=== PATIENT | female | born 1985 | race Caucasian/White ===

== ENCOUNTER 2018-05-29 15:55 | Emergency (ER) | payer MEDICAID ==
[~2018-05-29] VITALS: Ht 157.5 cm; Wt 81.7 kg
[~2018-05-29 15:55] MED LIST: ALBU90OI INH; AMOX500 PO; AZIT250 PO; Augmentin 875-1 EACH PO; BENZ100A PO; CEPH500 PO; CIPR500 PO; CODACE30 PO; ESCITALOPRAM OX10 MG PO; HYDACE5 PO; HYDGUAL120 PO; HYDHCL10 PO; IBUP800 PO; Lexapro5 MG PO; MEDR150I; NAPR500 PO; PERM5TC TOP; PREN-16 PO; PRENZ PO; Percocet 5-3251 EACH PO; Prednisone20 MG PO; RXTRAM50 PO; SPACE CHAMBER1 EACH MC; SULTRIDS PO; TRAM50 PO; Veetids 500500 MG PO; [UNRECOGNIZED DRUG - REMARK]
== END 2018-05-29 17:06 | disposition left against medical advice (07) ==
LOC: ER 15:55
DX: S70.362A Insect bite (nonvenomous), left thigh, initial encounter (principal); W57.XXXA Bitten or stung by nonvenomous insect and other nonvenomous arthropods, initial encounter; Z53.20 Procedure and treatment not carried out because of patient's decision for unspecified reasons
CPT/HCPCS: 99282

== ENCOUNTER 2018-12-18 00:53 | Emergency (ER) | payer MEDICAID ==
[~2018-12-18] VITALS: Ht 157.5 cm; Wt 98.0 kg
== END 2018-12-18 03:07 | disposition home or self-care (01) ==
LOC: ER 00:53
DX: S93.401A Sprain of unspecified ligament of right ankle, initial encounter (principal); F17.200 Nicotine dependence, unspecified, uncomplicated; X50.1XXA Overexertion from prolonged static or awkward postures, initial encounter
CPT/HCPCS: 99283

== ENCOUNTER 2021-05-29 01:25 | Emergency (ER) | payer SELFPAY ==
[~2021-05-29] VITALS: Ht 157.5 cm; Wt 99.8 kg
== END 2021-05-29 03:58 | disposition home or self-care (01) ==
LOC: ER 01:25
DX: S46.911A Strain of unspecified muscle, fascia and tendon at shoulder and upper arm level, right arm, initial encounter (principal); S20.211A Contusion of right front wall of thorax, initial encounter; V00.131A Fall from skateboard, initial encounter; F17.200 Nicotine dependence, unspecified, uncomplicated
CPT/HCPCS: 71045; 73000; 93005; 93010; 96374; 99284-25; J1885

== ENCOUNTER 2021-06-03 22:47 | Inpatient (IN) | payer OTHER ==
[~2021-06-03] VITALS: Ht 157.5 cm; Wt 100.7 kg
[2021-06-03 23:09] LABS: Hematocrit 35.6 % (33.0-51.0); Hemoglobin 12.3 g/dL (11.5-16.0); Mean Corpuscular HGB Conc 34.6 g/dL (31.5-36.5); Mean Corpuscular Volume 81 fL (80-100); Mean Platelet Volume 10.8 fL (9.1-12.4); Platelet Count 253 K/mm3 (150-400); RDW Coefficient Variation 13.3 % (11.7-14.2); RDW Standard Deviation 39.3 fL (35.1-46.3); White Blood Cell Count 26.41 K/mm3 (4.00-11.30)
[2021-06-03 23:28] LABS: BAND PERCENT MAN 20 % (0-8); BASOPHILS PERCENT MAN 0 % (0-2); EOSINOPHILS PERCENT MAN 0 % (0-6); LYMPHOCYTES ABSOLUTE MAN 1.84 K/mm3 (0.84-5.20); LYMPHOCYTES PERCENT MAN 7 % (21-46); MONOCYTES ABSOLUTE MAN 0.52 K/mm3 (0.16-1.47); MONOCYTES PERCENT MAN 2 % (4-13); NEUTROPHILS ABSOLUTE MAN 24.03 K/mm3 (1.96-9.15); SEG NEUTROPHILS PERCENT MAN 71 % (41-73); TOTAL CELLS COUNTED 100
[2021-06-03 23:34] LABS: Alanine Aminotransfer (ALT/SGP 64 U/L (12-78); Albumin, Blood 1.7 g/dL (3.4-5.0); Albumin/Globulin Ratio 0.3 (0.8-1.8); Alk Phos 83 U/L (50-136); Anion Gap 11 mmol/L (6-16); Aspartate Aminotrans (AST/SGOT 173 U/L (12-37); Bilirubin, Total 0.8 mg/dL (0.1-1.0); Blood Urea Nitrogen 24 mg/dL (8-24); CO2, Blood 23 mmol/L (21-32); Calcium, Blood 7.4 mg/dL (8.5-10.1); Chloride, Blood 94 mmol/L (98-108); Globulin, Blood 4.9 g/dL (2.2-4.0); Glomerular Filtration Rate >60 (60-); Glucose, Blood 130 mg/dL (70-99); Potassium, Blood 3.3 mmol/L (3.5-5.5); Sodium, Blood 128 mmol/L (136-145); Total Protein, Blood 6.6 g/dL (6.4-8.2)
[2021-06-04 00:47] LABS: Influenza A, PCR NEGATIVE (NEGATIVE); Influenza B, PCR NEGATIVE (NEGATIVE); Resp Syncytial Virus, PCR NEGATIVE (NEGATIVE); SARS-Cov-2 (COVID-19) PCR, MMC NEGATIVE (NEGATIVE)
[2021-06-04 03:48] LABS: Source, Urine Clean Catch
[2021-06-04 03:49] LABS: Bilirubin, Urine Neg (Neg); Blood, Urine 3+ (Neg); Glucose Qualitative, Urine Neg (Neg); Ketones, Urine Neg (Neg); Leukocyte Esterase, Urine Neg (Neg); Nitrite, Urine Neg (Neg); Protein, Urine 2+ (Neg); Urobilinogen, Urine 1+ (Normal)
[2021-06-04 04:06] LABS: Appearance, Urine Clear (Clear); Color, Urine Yellow (P-Yellow)
[2021-06-04 04:07] LABS: Bacteria Few /hpf; Red Blood Cells, Urine 0-2 /hpf (0-2); Squamous Epithelial Cells Few /hpf (Few); White Blood Cells, Urine Rare /hpf (0-5)
[2021-06-04 04:08] LABS: Trichomonas Few /hpf
[2021-06-04 05:19] LABS: U Amphetamine Screen DETECTED; U Barbituate Screen Not Detected; U Benzodiazapine Screen Not Detected; U Buprenorphine Screen Not Detected; U Cannabinoids Screen Not Detected; U Cocaine Screen Not Detected; U Methadone Screen Not Detected; U Methamphetamine Screen DETECTED; U Opiates Screen Not Detected; U Oxycodone Screen Not Detected; U Phencyclidine Screen Not Detected; U Propoxyphene Screen Not Detected
[2021-06-04 06:21] LABS: Mean Corpuscular HGB 27.9 pg (26.0-34.0); Mean Corpuscular HGB Conc 34.4 g/dL (31.5-36.5); Mean Corpuscular Volume 81 fL (80-100); Mean Platelet Volume 11.5 fL (9.1-12.4); Platelet Count 227 K/mm3 (150-400); RDW Coefficient Variation 13.5 % (11.7-14.2); RDW Standard Deviation 39.9 fL (35.1-46.3); Red Blood Cell Count 3.94 M/mm3 (3.80-5.20); White Blood Cell Count 26.86 K/mm3 (4.00-11.30)
--- NOTE | 2021-06-04 06:48 | NUR ---
Arrived to unit from ER. Unable to complete admission records due to will not answer questions. Very tearful at times. Central line placed by Dr German and confirmed by radiology. levo continues to infuse at 6mcg.
[2021-06-04 06:51] LABS: Anion Gap 9 mmol/L (6-16); Blood Urea Nitrogen 25 mg/dL (8-24); CO2, Blood 25 mmol/L (21-32); Calcium, Blood 7.2 mg/dL (8.5-10.1); Chloride, Blood 100 mmol/L (98-108); Creatinine, Blood 0.83 mg/dL (0.40-1.00); Glomerular Filtration Rate >60 (60-); Glucose, Blood 128 mg/dL (70-99); Potassium, Blood 3.3 mmol/L (3.5-5.5); Sodium, Blood 134 mmol/L (136-145)
--- NOTE | 2021-06-04 07:15 | NUR ---
Assumed care of pt at 0700. Report received from Caroline TORRES. Pt lethargic, but A&O x 4. Levophed at 6 mcg/min. Pt receiving 5 LPM NC to maintain SpO2 90% or greater.
[2021-06-04 07:24] LABS: BAND PERCENT MAN 28 % (0-8); BASOPHILS PERCENT MAN 0 % (0-2); EOSINOPHILS PERCENT MAN 0 % (0-6); LYMPHOCYTES PERCENT MAN 3 % (21-46); MONOCYTES ABSOLUTE MAN 0.26 K/mm3 (0.16-1.47); MONOCYTES PERCENT MAN 1 % (4-13); NEUTROPHILS ABSOLUTE MAN 25.78 K/mm3 (1.96-9.15); SEG NEUTROPHILS PERCENT MAN 68 % (41-73); TOTAL CELLS COUNTED 100
--- NOTE | 2021-06-04 09:00 | NUR ---
Levophed down to 4mcg/min. NC down to 3 LPM. Will continue to closely reassess.
--- NOTE | 2021-06-04 11:03 | NUR ---
Dr Esparza in to see pt. Discussed plan of care. Provider states patient may eat.
--- NOTE | 2021-06-04 16:35 | NUR ---
Discussed positive blood cultures with Dr Esparza. No new orders. Discussed that pt is on room air and levophed is off. Provider states pt may be medical floor status with telemetry.
--- NOTE | 2021-06-04 17:17 | NUR ---
SUMMARY Pt is medical floor status. Neuro: A&O x 4. Answers questions, follows commands, verbalizes needs. Pleasant and cooperative with care. Musculoskeletal: OOB once to use commode. Weak, but able to safely mobilize from bed to chair with staff assist. Moves all extremities with equal strength and range. Respiratory: Lungs clear t/o. Titrated from 5 LPM NC to room air. Pt's cough has become less frequent and less productive. SpO2 90% or greater. Cardiac: SR per monitor. Levophed titrated from 6 mcg/min to off today. Central line remains in place. Capillary refill less than 3 seconds BUE and BLE. No edema. GI: One incontinent bowel movement, liquid with pellets. 2 G low Na+ diet, pt tolerating well. : Tanner catheter patent and draining yellow urine. Skin: Unremarkable Psychosocial: Pleasant and cooperative with care. No visitors. Pt unable to contact family because she does not have personal phone and does not have phone numbers commited to memory.
--- NOTE | 2021-06-04 18:28 | NUR ---
Pt. is awake and sitting up in bed. Pt. welcomes my visit. Pt. is unsettled because she cannot contact her father. Pt. verbalizes her fear about being in ICU. Listen empathetically and give encouragement that this is the very best place for her to be. Pt. becomes carthatic. [place] with Pt. and offer to see if I can find her fathers phone number. He is not listen as a contact on her chart.
[2021-06-05 04:32] LABS: Hematocrit 30.8 % (33.0-51.0); Hemoglobin 10.6 g/dL (11.5-16.0); Mean Corpuscular HGB 27.9 pg (26.0-34.0); Mean Corpuscular HGB Conc 34.4 g/dL (31.5-36.5); Mean Corpuscular Volume 81 fL (80-100); Mean Platelet Volume 11.4 fL (9.1-12.4); Platelet Count 253 K/mm3 (150-400); RDW Coefficient Variation 13.4 % (11.7-14.2); RDW Standard Deviation 39.6 fL (35.1-46.3)
[2021-06-05 04:56] LABS: Alanine Aminotransfer (ALT/SGP 64 U/L (12-78); Albumin, Blood 1.3 g/dL (3.4-5.0); Albumin/Globulin Ratio 0.3 (0.8-1.8); Alk Phos 103 U/L (50-136); Anion Gap 9 mmol/L (6-16); Aspartate Aminotrans (AST/SGOT 161 U/L (12-37); Bilirubin, Total 0.4 mg/dL (0.1-1.0); Blood Urea Nitrogen 46 mg/dL (8-24); Bun/Creatinine Ratio 60.1 (12.0-20.0); CO2, Blood 25 mmol/L (21-32); Calcium, Blood 7.6 mg/dL (8.5-10.1); Chloride, Blood 102 mmol/L (98-108); Creatinine, Blood 0.77 mg/dL (0.40-1.00); Globulin, Blood 4.1 g/dL (2.2-4.0); Glomerular Filtration Rate >60 (60-); Glucose, Blood 153 mg/dL (70-99); Magnesium, Blood 2.9 mg/dL (1.6-2.4); Potassium, Blood 3.9 mmol/L (3.5-5.5); Sodium, Blood 136 mmol/L (136-145); Total Protein, Blood 5.4 g/dL (6.4-8.2); Vancomycin, Trough 14.2 ug/mL (5.0-10.0)
--- NOTE | 2021-06-05 05:54 | NUR ---
Remained on room air through night, sats remain stable in mid to high 90's. No elevated temps through night. Ciro eden dc'jareth per nursing protocol. Advised to call nurse for assist to get up to use toilet for safety until strength is recovered.
--- NOTE | 2021-06-05 08:25 | NUR ---
BEGINNING OF SHIFT Assumed care of pt from Caroline TORRES. Pt A&O x 4. Answers questions. Follows commands. Verbalizes needs. Pleasant and coooperative with care. Tanner removed during previous shift. Pt up to BSC to void urine- pt successfully able to void. Pt on room air. Central line removed, pt tolerated well. Site dressed with petroleum gauze, gauze, and tegaderm. Plan for pt to transfer to room 308, pt updated.
--- NOTE | 2021-06-05 11:11 | NUR ---
Pt. is awake and sitting up in a chair. Pt. welcomes my visit. Pt. is unsettled about being in hospital and from her "babies" (Pit Bull/Rottweiler puppies). Pt. was able to connect with friends to let them know she was in the hospital. Re-establish rapport and identify the history of pts. missy and belief. With pastoral care and a calming presence Pt. displayed evidence of reduced stress. Prayed for pt. Pt. verbalized gratitude for the spiritual care visit.
--- NOTE | 2021-06-05 19:09 | NUR ---
SHIFT SUMMARY PATIENT TRANSFERRED FROM ICU. AMBULATES TO RESTROOM SBA TO MANAGE IV POLE. ON RA. RECEIVING IV ANTIBIOTICS. NO SIGNIFICANT EVENTS T/O SHIFT. REPORT GIVEN TO ONCOMING RN.
--- NOTE | 2021-06-06 04:23 | NUR ---
SHIFT SUMMARY ADMITTED FOR PNEUMONIA/SEPSIS. FULL CODE. PLAN IS FOR IV ANTIB RX, THEN DC WHEN STABLE. TELEMETRY: NSR @ 74 BPM. SHE IS STANDBY ASSIST - BRP. A&O X4. LOW NA+ DIET. HOMELESS. NO NEW CONCERNS THIS SHIFT
[2021-06-06 05:13] LABS: Hematocrit 30.7 % (33.0-51.0); Hemoglobin 10.5 g/dL (11.5-16.0); Mean Corpuscular HGB 27.9 pg (26.0-34.0); Mean Corpuscular HGB Conc 34.2 g/dL (31.5-36.5); Mean Corpuscular Volume 82 fL (80-100); Mean Platelet Volume 11.6 fL (9.1-12.4); Platelet Count 308 K/mm3 (150-400); RDW Coefficient Variation 13.9 % (11.7-14.2); Red Blood Cell Count 3.76 M/mm3 (3.80-5.20); White Blood Cell Count 23.98 K/mm3 (4.00-11.30)
[2021-06-06 07:11] LABS: HIV AB/P24 AG SCREEN Non Reactive (Non Reactive)
[2021-06-06 07:12] LABS: Alanine Aminotransfer (ALT/SGP 59 U/L (12-78); Albumin, Blood 1.4 g/dL (3.4-5.0); Albumin/Globulin Ratio 0.4 (0.8-1.8); Alk Phos 83 U/L (50-136); Anion Gap 4 mmol/L (6-16); Aspartate Aminotrans (AST/SGOT 106 U/L (12-37); Bilirubin, Total 0.3 mg/dL (0.1-1.0); Blood Urea Nitrogen 39 mg/dL (8-24); CO2, Blood 26 mmol/L (21-32); Calcium, Blood 7.6 mg/dL (8.5-10.1); Chloride, Blood 107 mmol/L (98-108); Creatinine, Blood 0.67 mg/dL (0.40-1.00); Globulin, Blood 3.8 g/dL (2.2-4.0); Glomerular Filtration Rate >60 (60-); Glucose, Blood 80 mg/dL (70-99); Sodium, Blood 137 mmol/L (136-145); Total Protein, Blood 5.2 g/dL (6.4-8.2)
--- NOTE | 2021-06-06 19:32 | NUR ---
SHIFT SUMMARY PATIENT A&O X4. SBA TO RESTROOM. WORKED WITH PT TODAY. ON RA. RECEIVING IV ANTIBIOTICS. ANXIOUS ABOUT WANTING TO GO HOME. PLAN TO DISCHARGE TOMORROW. REPORT GIVEN TO ONCOMING RN.
--- NOTE | 2021-06-07 05:23 | NUR ---
PROJECT GEOPHYSICIST SUMMARY HAS BEEN RESTING QUIETLY WITH FEW INTERRUPTIONS THROUGH SHIFT. ABLE TO AMBULAT WITH SUPERVISION TO AND FROM BATHROOM. SELF SHOWER THIS AM. CALL LIGHT IN REACH. LUNG SOUNDS DIMINISHED. WBC TRENDING DOWN.
[2021-06-07 05:53] LABS: Hematocrit 35.7 % (33.0-51.0); Hemoglobin 11.9 g/dL (11.5-16.0); Mean Corpuscular HGB Conc 33.3 g/dL (31.5-36.5); Mean Corpuscular Volume 84 fL (80-100); Mean Platelet Volume 10.4 fL (9.1-12.4); Platelet Count 440 K/mm3 (150-400); RDW Coefficient Variation 14.1 % (11.7-14.2); RDW Standard Deviation 43.2 fL (35.1-46.3); Red Blood Cell Count 4.25 M/mm3 (3.80-5.20); White Blood Cell Count 27.33 K/mm3 (4.00-11.30)
[2021-06-07 06:20] LABS: Alanine Aminotransfer (ALT/SGP 59 U/L (12-78); Albumin, Blood 1.7 g/dL (3.4-5.0); Albumin/Globulin Ratio 0.4 (0.8-1.8); Alk Phos 83 U/L (50-136); Anion Gap 8 mmol/L (6-16); Aspartate Aminotrans (AST/SGOT 83 U/L (12-37); Bilirubin, Total 0.5 mg/dL (0.1-1.0); Blood Urea Nitrogen 21 mg/dL (8-24); Bun/Creatinine Ratio 34.4 (12.0-20.0); CO2, Blood 23 mmol/L (21-32); Chloride, Blood 106 mmol/L (98-108); Creatinine, Blood 0.61 mg/dL (0.40-1.00); Globulin, Blood 4.3 g/dL (2.2-4.0); Glomerular Filtration Rate >60 (60-); Glucose, Blood 70 mg/dL (70-99); Potassium, Blood 4.3 mmol/L (3.5-5.5); Sodium, Blood 137 mmol/L (136-145)
--- NOTE | 2021-06-07 10:11 | NUR ---
AM NOTE MS CIFUENTES IS A&OX4. UP INDEPENDENTLY IN HER ROOM WITH STEADY GAIT. 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 SHE TOLD ME THAT SHE AND HER ARE SEPERATED, THAT SHE CAN CALL HER FATHER AND STAY WITH HIM AFTER DISCHARGE. I HAVE NOT SPOKEN WITH ANY FAMILY. IV ABX INFUSED THIS AM. CALL LIGHT IN REACH.
[2021-06-07] MEDS ORDERED: HYDHCL25 PO (12:05)
[2021-06-07] MEDS ORDERED: BUPR75 PO (12:06)
[2021-06-07] MEDS ORDERED: LEVO750 PO (12:06)
--- NOTE | 2021-06-07 12:55 | NUR ---
discharge note MS CIFUENTES WAS SEEN BY DR LEAL AND DISCHARGE ORDERS DONE BY MD. PT GIVEN WRITTEN AND VERBAL DISCHARGE INSTRUCTIONS. SHE VERBALISED UNDERSTANDING OF DC INSTRUCTIONS. PIV REMOVED. TAXI SET UP FOR PT THROUGH HER BENEFITS TO GO TO THE PHARMACY AND THEN TO HER DESTINATION. PT GIVEN NUMBER TO BOOK RIDES FOR MEDICAL APPOINTMENTS. NICOTENE PATCH REMOVED AND DISCARDED BEFORE PT LEFT SHE SAID THAT SHE WILL LIKELY BE SMOKING AFTER SHE LEAVES. PT SAID SHE WAS OPTIMISTIC THAT SHE CAN MAKE GOOD HEALTH DECISIONS AFTER DISCHARGE TODAY.
== END 2021-06-07 13:03 | disposition home or self-care (01) | DRG 871 ==
LOC: ER 22:47 → ICUW 06-04 03:15 → ER 06-04 04:10 → ICUW 06-04 04:15 → MEDS 06-05 09:20
PROVIDERS: Family Medicine; Internal Medicine; Physician Assistant; ADMIT Internal Medicine
DX: A40.9 Streptococcal sepsis, unspecified (principal); R65.21 Severe sepsis with septic shock; J96.00 Acute respiratory failure, unspecified whether with hypoxia or hypercapnia; J13 Pneumonia due to Streptococcus pneumoniae; E87.2 Acidosis; E87.1 Hypo-osmolality and hyponatremia; Z20.822 Contact with and (suspected) exposure to COVID-19; F41.9 Anxiety disorder, unspecified; F32.A Depression, unspecified; I95.9 Hypotension, unspecified; F17.200 Nicotine dependence, unspecified, uncomplicated; F19.10 Other psychoactive substance abuse, uncomplicated; E87.6 Hypokalemia; D53.9 Nutritional anemia, unspecified; Z98.51 Tubal ligation status; Z98.890 Other specified postprocedural states; Z59.01 Sheltered homelessness
CPT/HCPCS: 0241U; 36415; 36556; 51702; 71045; 71260; 80048; 80053; 80202; 81001; 83605; 83735; 83880; 85025; 85027; 87040; 87070; 87086; 87186; 87205; 87389; 93005; 93010; 93306; 94640; 94664; 94762; 96365; 96367; 96375; 97116; 97162; 97165; 97530; 97535; 99285-25; A9270; C1751; J0456; J0696; J1650; J1885; J2543; J2930; J3370; J7030; J7050; J7060; J7120; Q0177; Q9967

== ENCOUNTER 2021-12-07 09:42 | Emergency (ER) | payer OTHER ==
[~2021-12-07] VITALS: Ht 157.5 cm; Wt 81.7 kg
[~2021-12-07 09:42] MED LIST changes: +BUPR75 PO; +HYDHCL25 PO; +LEVO750 PO
[2021-12-07] MEDS ORDERED: SULTRIDS PO (09:59)
== END 2021-12-07 10:18 | disposition home or self-care (01) ==
LOC: ER 09:42
DX: L02.416 Cutaneous abscess of left lower limb (principal); L02.415 Cutaneous abscess of right lower limb; L02.512 Cutaneous abscess of left hand; L02.511 Cutaneous abscess of right hand; L73.9 Follicular disorder, unspecified; F15.10 Other stimulant abuse, uncomplicated; F17.200 Nicotine dependence, unspecified, uncomplicated
CPT/HCPCS: 99283; A9270

== ENCOUNTER 2022-09-28 11:22 | Emergency (ER) | payer OTHER ==
[~2022-09-28] VITALS: Ht 157.5 cm; Wt 81.7 kg
[2022-09-28 11:30] VITALS: BP 111/65
[2022-09-28] MEDS ORDERED: Bactrim Ds Tab1 EACH PO (11:34)
[2022-09-28] MEDS ORDERED: CEPH500 PO (11:34)
== END 2022-09-28 12:37 | disposition home or self-care (01) ==
LOC: ER 11:22
DX: L02.411 Cutaneous abscess of right axilla (principal); F17.200 Nicotine dependence, unspecified, uncomplicated
CPT/HCPCS: 10060; 99282-25

== ENCOUNTER 2023-03-08 22:44 | Emergency (ER) | payer OTHER ==
[~2023-03-08] VITALS: Ht 157.5 cm; Wt 77.1 kg
[~2023-03-08 22:44] MED LIST changes: +Bactrim Ds Tab1 EACH PO
[2023-03-08 22:52] VITALS: BP 131/87
[2023-03-08] MEDS ORDERED: Ibuprofen600 MG PO (23:20)
[2023-03-08] MEDS ORDERED: PENVK500 PO (23:20)
== END 2023-03-08 23:53 | disposition home or self-care (01) ==
LOC: ER 22:44
DX: K04.7 Periapical abscess without sinus (principal); F17.200 Nicotine dependence, unspecified, uncomplicated
CPT/HCPCS: 99282; A9270

== ENCOUNTER 2023-03-22 22:40 | Emergency (ER) | payer OTHER ==
[~2023-03-22] VITALS: Ht 157.5 cm; Wt 81.7 kg
[~2023-03-22 22:40] MED LIST changes: +Ibuprofen600 MG PO; +PENVK500 PO
[2023-03-22 22:44] VITALS: BP 146/95
== END 2023-03-22 23:47 | disposition home or self-care (01) ==
LOC: ER 22:40
DX: S63.502A Unspecified sprain of left wrist, initial encounter (principal); F17.200 Nicotine dependence, unspecified, uncomplicated; V00.131A Fall from skateboard, initial encounter
CPT/HCPCS: 29125; 73110; 96372-59; 99283-25; J1885

== ENCOUNTER 2023-04-08 22:38 | Emergency (ER) | payer OTHER ==
[~2023-04-08] VITALS: Ht 165.1 cm; Wt 93.0 kg
[2023-04-08 22:41] VITALS: BP 152/98
[2023-04-08] MEDS ORDERED: Acetaminophen 500 MG Tab PO ONE (23:50)
== END 2023-04-09 00:25 | disposition home or self-care (01) ==
LOC: ER 22:38
DX: K04.7 Periapical abscess without sinus (principal); F17.200 Nicotine dependence, unspecified, uncomplicated
CPT/HCPCS: 64400; 99283-25; A9270

== ENCOUNTER 2023-11-14 01:35 | Emergency (ER) | payer OTHER ==
[~2023-11-14] VITALS: Ht 157.5 cm; Wt 90.7 kg
[2023-11-14 03:09] VITALS: BP 129/92
[2023-11-14 03:47] LABS: BASOPHILS ABSOLUTE AUTO 0.04 K/mm3 (0.00-0.23); BASOPHILS PERCENT AUTO 0 % (0-2); EOSINOPHILS ABSOLUTE AUTO 0.14 K/mm3 (0.00-0.68); EOSINOPHILS PERCENT AUTO 1 % (0-6); Hematocrit 36.8 % (33.0-51.0); Hemoglobin 12.1 g/dL (11.5-16.0); IMMATURE GRAN ABSOLUTE AUTO 0.01 K/mm3 (0.00-0.10); IMMATURE GRAN PERCENT AUTO 0 % (0-1); LYMPHOCYTES ABSOLUTE AUTO 3.49 K/mm3 (0.84-5.20); LYMPHOCYTES PERCENT AUTO 36 % (21-46); MONOCYTES ABSOLUTE AUTO 0.71 K/mm3 (0.16-1.47); MONOCYTES PERCENT AUTO 7 % (4-13); Mean Corpuscular HGB 29.2 pg (26.0-34.0); Mean Corpuscular HGB Conc 32.9 g/dL (31.5-36.5); Mean Corpuscular Volume 89 fL (80-100); Mean Platelet Volume 9.6 fL (9.1-12.4); NEUTROPHILS ABSOLUTE AUTO 5.41 K/mm3 (1.96-9.15); NEUTROPHILS PERCENT AUTO 55 % (41-73); Platelet Count 241 K/mm3 (150-400); RDW Coefficient Variation 13.1 % (11.7-14.2); RDW Standard Deviation 42.6 fL (35.1-46.3); Red Blood Cell Count 4.15 M/mm3 (3.80-5.20)
[2023-11-14] MEDS ORDERED: Doxycycline Hyclate 100 MG TAB PO ONE (04:20)
[2023-11-14 04:31] LABS: Alanine Aminotransfer (ALT/SGP 124 U/L (12-78); Albumin, Blood 3.2 g/dL (3.4-5.0); Albumin/Globulin Ratio 0.8 (0.8-1.8); Alk Phos 103 U/L (50-136); Anion Gap 10 mmol/L (3-11); Aspartate Aminotrans (AST/SGOT 97 U/L (12-37); Bilirubin, Total 0.3 mg/dL (0.1-1.0); Blood Urea Nitrogen 18 mg/dL (8-24); Bun/Creatinine Ratio 24.9 (12.0-20.0); CO2, Blood 25 mmol/L (21-32); Calcium, Blood 9.1 mg/dL (8.5-10.1); Chloride, Blood 109 mmol/L (98-108); Creatinine, Blood 0.72 mg/dL (0.40-1.00); Glomerular Filtration Rate 110 (60-); Glucose, Blood 86 mg/dL (70-99); Sodium, Blood 140 mmol/L (136-145); Total Protein, Blood 7.2 g/dL (6.4-8.2)
[2023-11-14] MEDS ORDERED: DOXY100 PO (04:54)
== END 2023-11-14 05:10 | disposition home or self-care (01) ==
LOC: ER 01:35
PROVIDERS: Student in an Organized Health Care Education/Training Program
DX: L03.113 Cellulitis of right upper limb (principal); L98.499 Non-pressure chronic ulcer of skin of other sites with unspecified severity; F17.200 Nicotine dependence, unspecified, uncomplicated
CPT/HCPCS: 80053; 85025; 99283; A9270

== ENCOUNTER 2024-05-24 23:54 | Emergency (ER) | payer OTHER ==
[~2024-05-24] VITALS: Ht 157.5 cm; Wt 81.7 kg
[~2024-05-24 23:54] MED LIST changes: +DOXY100 PO
[2024-05-25] MEDS ORDERED: Trimethoprim/Sulfamethoxazole DS Tab PO ONE (02:45)
[2024-05-25] MEDS ORDERED: Lidocaine/Tetracaine/Epinephr 3 ML GEL SYRINGE TOP ONE (02:45)
[2024-05-25] MEDS ORDERED: Diphth,Pertuss(Acell),Tet Vac 0.5 ML VIAL IM ONE (02:45)
[2024-05-25] MEDS ORDERED: Cephalexin Monohydrate 500 MG Cap PO ONE (02:50)
[2024-05-25] MEDS ORDERED: CEPH500 PO (03:27)
[2024-05-25] MEDS ORDERED: SULTRIDS PO (03:27)
[2024-05-25 03:30] VITALS: BP 127/78
== END 2024-05-25 03:45 | disposition other institution (70) ==
LOC: ER 23:54
DX: L03.116 Cellulitis of left lower limb (principal); N75.0 Cyst of Bartholin's gland; Z23 Encounter for immunization; Z79.2 Long term (current) use of antibiotics; F17.200 Nicotine dependence, unspecified, uncomplicated
CPT/HCPCS: 90471; 90715; 99282; A9270

== ENCOUNTER 2024-12-01 22:57 | Emergency (ER) | payer OTHER ==
[~2024-12-01] VITALS: Ht 170.2 cm; Wt 77.1 kg
[2024-12-01 23:49] LABS: BASOPHILS ABSOLUTE AUTO 0.05 K/mm3 (0.00-0.23); BASOPHILS PERCENT AUTO 1 % (0-2); EOSINOPHILS ABSOLUTE AUTO 0.26 K/mm3 (0.00-0.68); EOSINOPHILS PERCENT AUTO 3 % (0-6); Hematocrit 34.0 % (33.0-51.0); Hemoglobin 11.5 g/dL (11.5-16.0); IMMATURE GRAN ABSOLUTE AUTO 0.02 K/mm3 (0.00-0.10); IMMATURE GRAN PERCENT AUTO 0 % (0-1); LYMPHOCYTES ABSOLUTE AUTO 3.59 K/mm3 (0.84-5.20); LYMPHOCYTES PERCENT AUTO 42 % (21-46); MONOCYTES ABSOLUTE AUTO 0.46 K/mm3 (0.16-1.47); MONOCYTES PERCENT AUTO 5 % (4-13); Mean Corpuscular HGB Conc 33.8 g/dL (31.5-36.5); Mean Corpuscular Volume 87 fL (80-100); NEUTROPHILS ABSOLUTE AUTO 4.14 K/mm3 (1.96-9.15); NEUTROPHILS PERCENT AUTO 49 % (41-73); NRBC ABSOLUTE 0.00 K/mm3 (0.00-0.02); NRBC Auto 0.0 /100 WBC (0.0-0.2); RDW Coefficient Variation 12.8 % (11.7-14.2); RDW Standard Deviation 41.0 fL (35.1-46.3)
[2024-12-02] LABS: Alanine Aminotransfer (ALT/SGP 25.0 U/L (12-78); Albumin, Blood 3.1 g/dL (3.4-5.0); Albumin/Globulin Ratio 0.9 (0.8-1.8); Anion Gap 9.0 mmol/L (3-11); Aspartate Aminotrans (AST/SGOT 20.0 U/L (12-37); Bilirubin, Total 0.4 mg/dL (0.1-1.0); Blood Urea Nitrogen 19.0 mg/dL (8-24); CO2, Blood 24.0 mmol/L (21-32); Calcium, Blood 8.4 mg/dL (8.5-10.1); Chloride, Blood 109.0 mmol/L (98-108); Creatinine, Blood 0.61 mg/dL (0.40-1.00); Globulin, Blood 3.6 g/dL (2.2-4.0); Glucose, Blood 88.0 mg/dL (70-99); Potassium, Blood 3.6 mmol/L (3.5-5.5); Sodium, Blood 138.0 mmol/L (136-145); Total Protein, Blood 6.7 g/dL (6.4-8.2)
[2024-12-02 00:06] LABS: Platelet Count 216 K/mm3 (150-400)
[2024-12-02 00:37] LABS: Source, Urine Clean Catch
[2024-12-02 01:00] VITALS: BP 112/79
[2024-12-02 01:05] LABS: Bilirubin, Urine Neg (Neg); Glucose Qualitative, Urine Neg (Neg); Ketones, Urine Neg (Neg); Leukocyte Esterase, Urine Neg (Neg); Protein, Urine Neg (Neg); Specific Gravity, Urine 1.010 (1.003-1.022); Urobilinogen, Urine 1+ (Normal)
[2024-12-02 01:19] LABS: Color, Urine Yellow (P-Yellow)
[2024-12-02 01:20] LABS: Red Blood Cells, Urine 0-2 /hpf (0-2); White Blood Cells, Urine 0-2 /hpf (0-5)
== END 2024-12-02 01:44 | disposition home or self-care (01) ==
LOC: ER 22:57
PROVIDERS: Student in an Organized Health Care Education/Training Program
DX: R07.2 Precordial pain (principal); S00.81XA Abrasion of other part of head, initial encounter; Z79.2 Long term (current) use of antibiotics; Z79.899 Other long term (current) drug therapy; F17.200 Nicotine dependence, unspecified, uncomplicated; Y04.8XXA Assault by other bodily force, initial encounter; W57.XXXA Bitten or stung by nonvenomous insect and other nonvenomous arthropods, initial encounter
CPT/HCPCS: 71046; 80053; 81001; 83690; 84484; 85025; 93005; 93010; 99284-25

== ENCOUNTER 2025-02-07 15:59 | Emergency (ER) | payer OTHER ==
[~2025-02-07] VITALS: Ht 157.5 cm; Wt 88.5 kg
[2025-02-07] MEDS ORDERED: Amoxicillin500 MG PO (16:29)
[2025-02-07] MEDS ORDERED: IBUP600 PO (16:29)
[2025-02-07 17:10] VITALS: BP 125/80
== END 2025-02-07 17:15 | disposition home or self-care (01) ==
LOC: ER 15:59
DX: K04.7 Periapical abscess without sinus (principal); K08.89 Other specified disorders of teeth and supporting structures; H66.93 Otitis media, unspecified, bilateral; F17.200 Nicotine dependence, unspecified, uncomplicated
CPT/HCPCS: 64400; 99282-25